=== PATIENT | female | born 1990 | race Asian ===

== ENCOUNTER 2018-03-20 22:55 | Emergency (ER) | payer OTHER, SELFPAY ==
[2018-03-20 22:58] VITALS: BP 112/81; PULSE 84; RESP 18; TEMP 36.2; O2SAT 99; BMI 19.0
--- NOTE | 2018-03-20 23:15 | ED.DCSUM_ITS ---
- ER Visit Summary Date of Service: 03/20/18 Chief Complaint: [Cat bite] History of Present Illness: The patient is a 27 F [presents to the emergency department with a cat bite to her left upper arm. Patient states that she was bitten by her roommate's cat. Patient was concerned about forest rabies. The cat apparently was adopted and has been immunized. The cat did not appear rabid. Patient is right-hand dominant.] Physical Examination: [Left upper arm-there are 4 small minimally visualized puncture wounds to the left upper arm without evidence of soft tissue swelling, erythema, ecchymosis, or foreign body. Patient neurovascular intact distally.] Test Results: [None indicated] Emergency Department Course and Treatment: [Patient will be started on Cipro and clindamycin given that she is still an allergic.] Treatment Plan: [Cipro and clindamycin Disposition: [Discharged home in stable condition] Impression: [Cat bite left upper arm] This note was generated with [employer] dictation software. It may contain incorrect words, spelling, and punctuation that were not noted in review of the chart prior to signing ED Disposition - Plan for ED Patient: Chief Complaint: Bite Referrals: Care Physician,No Primary [Primary Care Provider] -
--- NOTE | 2018-03-20 23:15 | ED.DEP ---
ED Disposition - Plan for ED Patient: Chief Complaint: Bite Instructions: ED Bite Cat Prescriptions: Ciprofloxacin [Cipro] 500 mg PO BID #14 tab Clindamycin HCl [Cleocin] 300 mg PO Q6H #40 cap Referrals: Care Physician,No Primary [Primary Care Provider] - 5-7 Days
[2018-03-20 23:24] VITALS: RESP 16
[2018-03-20] MEDS: Ciprofloxacin 500 MG Tablet PO (23:28)
[2018-03-20] MEDS: Clindamycin HCl 150 MG Capsule 300 MG PO (23:28)
--- NOTE | 2018-03-20 23:40 | NURSING ---
PT KNOWS TO TAKE FULL COURSE OF ANTIBIOTICS AND TO CLEAN THE WOUND 2-3 TIMES A DAY AND TO WASH HANDS BEFORE AND AFTER CLEANING THE AREA.
== END 2018-03-20 23:41 | disposition home or self-care (01) ==
LOC: ED 23:24
PROVIDERS: Emergency Provider Emergency Medicine
DX: S41.152A Open bite of left upper arm, initial encounter (principal); W55.01XA Bitten by cat, initial encounter; Y93.9 Activity, unspecified; Y92.9 Unspecified place or not applicable
CPT/HCPCS: 99283